=== PATIENT | female | born 1990 | race Two or more races ===

== ENCOUNTER 2021-02-04 17:00 | Observation (INO) | payer OTHER ==
[2021-02-04] MEDS ORDERED: METF-370 PO (17:35)
[2021-02-04] MEDS ORDERED: PREN-96 PO (17:35)
== END 2021-02-04 18:23 | disposition home or self-care (01) ==
LOC: LDRP 17:00
PROVIDERS: ADMIT Obstetrics & Gynecology; ATTEND Obstetrics & Gynecology
DX: O62.9 Abnormality of forces of labor, unspecified (principal); Z3A.38 38 weeks gestation of pregnancy; Z79.899 Other long term (current) drug therapy
CPT/HCPCS: 59025; 81002; 82948; 82962; 94760; G0378